=== PATIENT | male | born 1970 | race Hispanic/Latino ===

== ENCOUNTER 2019-03-12 20:57 | Emergency (ER) | payer SELFPAY ==
[~2019-03-12] VITALS: Ht 165.1 cm; Wt 105.8 kg
[2019-03-12] MEDS ORDERED: ULTRAM50 M1 PO (22:03)
[2019-03-12] MEDS ORDERED: FLEXERIL PO (22:03)
[2019-03-12 22:40] VITALS: BP 150/79
== END 2019-03-12 22:40 | disposition home or self-care (01) | DRG 563 ==
LOC: ED 20:57
DX: S83.91XA Sprain of unspecified site of right knee, initial encounter (principal); S93.401A Sprain of unspecified ligament of right ankle, initial encounter; W10.9XXA Fall (on) (from) unspecified stairs and steps, initial encounter

== ENCOUNTER 2019-03-20 09:08 | Emergency (ER) | payer SELFPAY ==
[~2019-03-20] VITALS: Ht 165.1 cm; Wt 105.8 kg
[~2019-03-20 09:08] MED LIST: FLEXERIL PO; ULTRAM50 M1 PO
[2019-03-20 09:51] LABS: HEMATOCRIT 43.9 % (39.0-50.0); IMMATURE GRANULOCYTES 0.2 % (0.0-5.0); MEAN CELL VOLUME 84.6 fL CALC (80.0-100.0); MEAN CORPUSCULAR HGB 28.9 pG CALC (26.0-32.0); MEAN CORPUSCULAR HGB CONC 34.2 g/L CALC (32.0-36.0); NEUT# 5.35 thou/uL (1.82-7.42); RED BLOOD COUNT 5.19 mill/uL (4.70-6.10); RED CELL DISTRI WIDTH 12.7 % (11.5-15.5)
[2019-03-20 11:11] LABS: ALKALINE PHOSPHATASE 63 u/l (38-126); ANION GAP 16 (6-22 (CALC)); BILIRUBIN, TOTAL 0.9 mg/dL (0.0-1.4); BUN 11 mg/dL (9-20); BUN/CREATININE RATIO 19 (12-20 (CALC)); CARBON DIOXIDE 22 mmol/l (22-30); CHLORIDE 106 mmol/l (95-108); CREATININE 0.6 mg/dL (0.7-1.3); GFR > 60 ML/MIN (>=60 (CALC)); GFR FOR AFR.AMER. > 60 ML/MIN (>=60 (CALC)); POTASSIUM 4.1 mmol/l (3.5-5.1); SGOT/AST 26 u/l (17-59); SODIUM 140 mmol/l (137-146); TOTAL PROTEIN 7.6 g/dL (6.3-8.2)
[2019-03-20] MEDS ORDERED: LORTAB 1010 MG PO (12:00)
[2019-03-20 12:04] VITALS: BP 162/85
== END 2019-03-20 12:20 | disposition home or self-care (01) | DRG 566 ==
LOC: ED 09:08
PROVIDERS: Emergency Medicine
DX: M25.471 Effusion, right ankle (principal); M25.474 Effusion, right foot

== ENCOUNTER 2019-12-15 20:58 | Emergency (ER) | payer SELFPAY ==
[~2019-12-15] VITALS: Ht 172.7 cm; Wt 109.1 kg
[~2019-12-15 20:58] MED LIST changes: +LORTAB 1010 MG PO
[2019-12-15 21:51] LABS: URINE BILIRUBIN - DIPSTICK NEGATIVE (NEGATIVE); URINE BLOOD DIPSTICK NEGATIVE (NEGATIVE); URINE COLOR YELLOW; URINE GLUCOSE - DIPSTICK NEGATIVE (NEGATIVE); URINE KETONE NEGATIVE (NEGATIVE); URINE LEUK ESTERASE NEGATIVE (NEGATIVE); URINE NITRITE - DIPSTICK NEGATIVE (Negative); URINE PH 6.5 (4.5-8.0); URINE PROTEIN - DIPSTICK NEGATIVE (NEG-TRACE); URINE SPECIFIC GRAVITY 1.015; URINE UROBILINOGEN - DIPSTICK 0.2 E.U./dL (0.2)
[2019-12-15 21:52] LABS: HEMATOCRIT 42.2 % (39.0-50.0); HEMOGLOBIN 14.7 g/dl (14.0-18.0); IMMATURE GRANULOCYTES 0.8 % (0.0-5.0); MEAN CELL VOLUME 83.4 fL CALC (80.0-100.0); MEAN CORPUSCULAR HGB 29.1 pG CALC (26.0-32.0); MEAN CORPUSCULAR HGB CONC 34.8 g/dL CAL (32.0-36.0); NEUT# 2.77 thou/uL (1.82-7.42); RED BLOOD COUNT 5.06 mill/uL (4.70-6.10)
[2019-12-15 22:05] LABS: ALBUMIN 4.2 g/dL (3.2-5.0); ALKALINE PHOSPHATASE 58 u/l (38-126); BILIRUBIN, TOTAL 0.6 mg/dL (0.0-1.4); BUN 9 mg/dL (9-20); BUN/CREATININE RATIO 14 (12-20 (CALC)); CHLORIDE 102 mmol/l (95-108); CPK 106 u/l (52-200); CREATININE 0.7 mg/dL (0.7-1.3); GFR > 60 ML/MIN (>=60 (CALC)); GFR FOR AFR.AMER. > 60 ML/MIN (>=60 (CALC)); POTASSIUM 3.7 mmol/l (3.5-5.1); SODIUM 136 mmol/l (137-146)
[2019-12-15 22:08] LABS: ANION GAP 10 (6-22 (CALC)); CARBON DIOXIDE 28 mmol/l (22-30); SGOT/AST 53 u/l (17-59)
[2019-12-15 22:14] LABS: MYOGLOBIN 30 ng/mL (0 - 121)
[2019-12-15 23:36] VITALS: BP 151/92
--- NOTE | 2019-12-19 17:26 | NUR ---
Patient notified of positive Covid results via nozzle tender Chip Roberts. Advised patient to quarantine unitl contacted by [facility] with further instructions. Advised patient to return to the ED with difficulty breathing or other urgent needs. Patient verbalized understanding.
== END 2019-12-15 23:38 | disposition home or self-care (01) | DRG 179 ==
LOC: ED 20:58
PROVIDERS: Family Medicine
DX: U07.1 COVID-19 (principal)

== ENCOUNTER 2023-08-08 10:38 | Emergency (ER) | payer SELFPAY ==
[2023-08-08] VITALS (9 sets, daily range): BP systolic 154–179; BP diastolic 88–105
[~2023-08-08] VITALS: Ht 172.7 cm; Wt 84.0 kg
[2023-08-08] MEDS ORDERED: KETOROLAC TROMETHAMINE 30 MG/ML SDV IM ONE (12:45)
[2023-08-08] MEDS ORDERED: NAPROXEN500 MG PO (13:35)
== END 2023-08-08 14:40 | disposition home or self-care (01) | DRG 605 ==
LOC: ED 10:38
DX: S70.11XA Contusion of right thigh, initial encounter (principal); W20.8XXA Other cause of strike by thrown, projected or falling object, initial encounter; Y93.89 Activity, other specified